=== PATIENT | female | born 1940 | race Caucasian/White ===

== ENCOUNTER 2016-08-23 07:30 | Emergency (ER) | payer OTHER | END 2016-08-23 10:48 | disposition home or self-care (01) | LOC: ER 07:30 | DX: S80.811A Abrasion, right lower leg, initial encounter (principal); S70.11XA Contusion of right thigh, initial encounter; M25.511 Pain in right shoulder; M25.551 Pain in right hip; M25.571 Pain in right ankle and joints of right foot; R07.81 Pleurodynia; W01.0XXA Fall on same level from slipping, tripping and stumbling without subsequent striking against object, initial encounter; Y92.828 Other wilderness area as the place of occurrence of the external cause; I10 Essential (primary) hypertension; Z86.73 Personal history of transient ischemic attack (TIA), and cerebral infarction without residual deficits; Z79.82 Long term (current) use of aspirin; Z79.899 Other long term (current) drug therapy; Z88.0 Allergy status to penicillin | CPT/HCPCS: 71250; 73030; 73502; 73590; 73600; 99283-25; 99284; J8597 ==